=== PATIENT | female | born 2000 | race African-American/Black ===

== ENCOUNTER 2018-01-30 17:16 | Emergency (ER) | payer MEDICAID, OTHER ==
[~2018-01-30] VITALS: Ht 165.1 cm; Wt 90.0 kg
[~2018-01-30 17:16] MED LIST: ALBU25PO2
[2018-01-30] MEDS ORDERED: IPRATROPIUM BROMIDE (0.02%) 0.5MG/2.5ML NEB HHN STA (20:12)
[2018-01-30] MEDS ORDERED: ALBUTEROL (0.083%) 2.5MG/3ML NEB HHN STA (20:12)
[2018-01-30] MEDS ORDERED: PREDNISONE 20MG TABLET PO STA (20:12)
[2018-01-30 21:11] VITALS: BP 115/86
== END 2018-01-30 21:41 | disposition home or self-care (01) ==
LOC: ER 17:24
DX: J45.901 Unspecified asthma with (acute) exacerbation (principal); F12.10 Cannabis abuse, uncomplicated; R10.9 Unspecified abdominal pain; M54.9 Dorsalgia, unspecified; Z88.0 Allergy status to penicillin
CPT/HCPCS: 71045; 81025; 94640; 99283; J7512; J7611